=== PATIENT | male | born 1950 | race African-American/Black ===

== ENCOUNTER 2016-11-05 11:47 | Inpatient (IN) | payer BC ==
--- NOTE | ~2016-11-05 | CO ---
Unit #: [id number] #: [id number] Patient: JOHN HESS [id number] [address] [address] [id number] I MR#: [id number] NAME: JOHN HESS ROOM: 301 Age: 66 Sex: M Admission Date: 11/05/2016 : 1950 Attending Physician: Myron Jones M.D. CONSULTATION REPORT REASON FOR CONSULTATION Multiple PEG placement. HISTORY OF PRESENTING ILLNESS The patient is a 66-year-old -[place] male who has a history of lung cancer with mets to the brain. At this time, he is completely unresponsive. Nurse says last night he took a "turn for the worst." His family was at bedside. Initially his sister and POA had agreed to the PEG. However, at this time they may be changing their minds. Patient opens his eyes spontaneously; however, does not follow commands, is not easily otherwise arousable. PAST MEDICAL HISTORY 1. Lung cancer with mets to the brain. 2. History of smoking. 3. Chronic anemia. 4. Malnutrition. 5. History of DVT. FAMILY HISTORY Per chart, is noncontributory. SURGICAL HISTORY 1. Vena cava filter insertion. 2. Previous bronch. SOCIAL HISTORY The patient is a reformed smoker. Denies drug use or alcohol. HOME MEDICATIONS 1. Colace. 2. Iron. 3. Multivitamin. REVIEW OF SYSTEMS Unobtainable secondary to patient's mental status. PHYSICAL EXAMINATION GENERAL: The patient is an extremely cachectic, unresponsive 66-year-old male who appears to be in very ill health. VITAL SIGNS: Temperature 97.7, pulse is 108, respirations 20, blood pressure is 70/36. Last night it did get as low as 59/33 where MET team was called. CARDIAC: S1, S2. Unit #: [id number] #: [id number] Patient: JOHN HESS LUNGS: Scattered wheezes. ABDOMEN: Very thin. Positive bowel sounds. DIAGNOSTIC STUDIES LABORATORY DATA: Chemistry is currently pending. White count 9.6, hemoglobin 10.6, hematocrit 34.8, platelets are 164. ASSESSMENT AND PLAN 1. Lung cancer with mets to the brain: The patient is currently undergoing palliative radiation. 2. Altered mental status with subsequent request for PEG tube: At this time, patient does appear to be a very poor candidate. Will need to discuss further with his family. In the meantime, if absolutely necessary, would consider Dobbhoff tube placement. Thank you for this interesting consult. We will continue to follow along. Dictated by... Leyla Madden A.P.R.N. for Fawn Hernandez/suzan TD: 11/19/2016 13:07 JOB #: [id number] CONSULTATION REPORT X X CONSULTATION REPORT
--- NOTE | ~2016-11-05 | CR72 ---
[facility] A Service of [facility] & [facility] RADIOLOGY TEXT RESULTS PATIENT: JOHN HESS LOCATION: [facility] 301- : [birth year] UNIT #: [id number] AGE: [address]: Myron Jones MD SEX: M ORDER DR: [id number] [facility] [address] [facility]. [place], [place] [address] [id number] MR#: [id number] Acc #: [id number] NAME: JOHN HESS : 1950 SEX: M STUDY DATE/TIME: 11/18/2016 21:00 UNIT: A PCU ROOM: [facility] STUDY DESCRIPTION: CR Chest Single View Portable Attending Physician: Myron Jones M.D. Ordering Physician: Myron Jones M.D. MEDICAL IMAGING REPORT This report is preliminary unless electronic signature is present EXAM Portable chest, 11/18/2016 HISTORY Shortness of breath, low oxygen saturation today. FINDINGS The cardiac and mediastinal structures are stable compared with 10/25/2016. There is a right pleural effusion with infiltrate or atelectasis in the right lower lobe. Lungs are otherwise clear. No pneumothorax. IMPRESSION Small right pleural effusion with infiltrate or atelectasis in the right lower lobe. Dictated by... Anthony Osman M.D. THIS IS AN ELECTRONICALLY VERIFIED REPORT Anthony Osman M.D. at 11/19/2016 10:50 AM Avril TD: 11/19/2016 04:31 JOB #: [id number] MEDICAL IMAGING REPORT COPY
--- NOTE | ~2016-11-05 | HP ---
Unit #: [id number] #: [id number] Patient: JOHN HESS [id number] [address] [address] [id number] I MR#: [id number] NAME: JOHN HESS ROOM: 301 Age: 66 Sex: M Admission Date: 11/05/2016 : 1950 Attending Physician: Myron Jones M.D. HISTORY AND PHYSICAL DATE OF EVALUATION 11/06/2016 REASON FOR ADMISSION Lung cancer with brain metastasis needing radiation therapy. HISTORY OF PRESENT ILLNESS This is a very unfortunate, 66-year-old, -[place]inean gentleman with past medical history significant for tobacco abuse, who presented to the emergency room at [facility] a few days ago with altered mental status. At that time, his CT head showed multiple brain metastasis with vasogenic edema compatible with possible neoplastic disease. The patient underwent bronchoscopy with endobronchial ultrasound biopsy which showed nonsmall-cell lung cancer. The patient was transferred here for palliative radiation. Currently, the patient is awake, alert, slightly confused. He is inconsistent with his history and he (1) easily when he is talking. He denied any chest pain, nausea, vomiting or diarrhea. No headache. PAST MEDICAL HISTORY 1. Nonsmall lung cancer. 2. Smoking. 3. Chronic anemia. 4. Malnutrition. 5. DVT. FAMILY HISTORY Noncontributory. PAST SURGICAL HISTORY 1. Bronch/EBUS. 2. Venocaval filter insertion. SOCIAL HISTORY The patient smokes one pack per day for more than 25 years. No history of drug abuse and he drinks occasionally. HOME MEDICATION 1. Colace. 2. Ferrous sulfate. 3. Multivitamin. REVIEW OF SYSTEMS A 12-point review of systems was obtained and was negative except for what Unit #: [id number] #: [id number] Patient: JOHN HESS was mentioned in the HPI. PHYSICAL EXAMINATION GENERAL APPEARANCE: The patient is very cachetic, in no acute distress. VITAL SIGNS: Blood pressure 113/65. Respiratory rate 16. O2 saturation 98%. HEENT: Normocephalic, atraumatic. PERRLA. EOMI. NECK: Supple. No JVD. No lymphadenopathy. CHEST: Decreased breath sounds bilaterally. HEART: S1, S2. No murmurs, gallops or rubs. ABDOMEN: Soft, nontender. Bowel sounds positive. No hepatosplenomegaly. EXTREMITIES: No edema or cyanosis. SKIN: No rashes. CENTRAL NERVOUS SYSTEM: The patient is awake, alert, oriented x2. DIAGNOSTIC STUDIES Labs and x-ray are unavailable from our facility. The patient came as a transfer from [facility]. ASSESSMENT 1. Stage 4 nonsmall lung cancer. 2. Brain metastasis. 3. Malignant effusion. 4. History of DVT. 5. Malnutrition. 6. Chronic anemia. PLAN 1. I discussed with patient CODE status and we will make him DNI/DNR. 2. Palliative radiation. 3. Haldol and iron sulfate. 4. Consult Oncology for final plan. Dictated by Fawn Sofia TD: 11/07/2016 11:17 JOB #: [id number] HISTORY AND PHYSICAL X LUCÍA PADILLA MD X HISTORY AND PHYSICAL
--- NOTE | ~2016-11-05 | FU ---
[facility] Nutrition Therapy DATE: 11/13/16 Patient: JOHN HESS Physician: ALLEY Address: [address] [place] [address] Room/Bed: [address] [place] [address], Zip: [place] [address] Admit Date: 11/05/16 Date of : [birth year] Height: 6 0 Weight: 108 49.4 NUTRITION MONITORING/FOLLOW-UP: Reason: Follow up Anthropometrics: Ht: 6'0" Adm wt: 54.8 kg BMI: 16.4 IBW: 80.9 kg, 68% IBW Labs: (Last obtained 11/12) BUN 40 Ca++ 8.0 Meds: Ferrous gluconate, zofran, therapeutic formula, colace, remeron I&O's: 580/5, last BM 11/12 Skin: Scabs/ scars- BLE/ scattered Estimated Nutrition Needs: 9573-3781 kcals (35-40 kcals/kg) 82-110 grams protein (1.5-2.0 grams/kg) Diet: High calorie/ high protein +Ensure TID +Ensure clear TID Assessment: Chart reviewed, events noted. Pt continues with poor PO intake per RN report. RN states that the pt is very lethargic, and consumed only a couple bites of his breakfast. RD spoke with care management team regarding the pt's poor nutritional status. Care management and MD (Judy) spoke with family, explaining that if they want the pt to go to rehab eventually, he will need a PEG if PO intake does not improve. Family to discuss this and make a decision. Per MD note, the family does not want Hospice services at this time. Per transitions managercommercial intelligence manager, the pt's family brought him a chili cheese hot dog, which he only ate two bites of. Of note,the pt's weight is trending down since admission as noted above. Please see recommendations below. Dx: Severe PCM RT cancer, decreased appetite, nausea AEB 16% weight loss in short time frame, 25# weight loss, poor intake, BMI 16.4, 68% IBW. Intervention: 1. HPHC diet 2. Ensure TID 3. Ensure clear TID 4. PEG Monitoring, Evaluation and Goals: GOALS NOT BEING MET [facility] Nutrition Therapy DATE: 11/13/16 Patient: JOHN HESS Physician: ALLEY Address: [address] [place] [address] Room/Bed: [address] [place] [address], Zip: [place] [address] Admit Date: 11/05/16 Date of : [birth year] Height: 6 0 Weight: 108 49.4 1. Oral intake; tolerate >50-75% of meals 2. Labs; WNL 3. Weight; promote weight gain, prevent further weight loss 4. Skin; prevent breakdown Recommendations: 1. Recommend obtaining enteral access if deemed appropriate per pt/ family/ MD discretion. 2. RD now recommending continuous enteral nutrition to meet 100% of the pt's estimated nutrient needs, as he is consuming very minimal amounts of nutrition PO. -If enteral access is obtained, would start continuous enteral nutrition with Jevity 1.5 @ 15 mL/hr. Increase by 10 mL q 12 hrs as tolerated to goal of 60 mL/hr to provide: 2160 kcals/ 92 grams protein/ 1094 mL free H20 PLEASE NOTE: THIS PT IS AT RISK FOR REFEEDING SYNDROME DUE TO SEVERE MALNUTRITION. IF ENTERAL NUTRITION IS STARTED, PLEASE START FEEDING AT LOW RATE AND INCREASE GRADUALLY USING RD RECOMMENDATIONS ABOVE. MONITOR ELECTROLYTES, GLUCOSE, AND FLUID STATUS CLOSELY 3. Continue PO diet for oral gratification. If the pt's PO intake improves, enteral nutrition will be adjusted. RD will continue to follow. Status: Pt is at moderate-severe nutritional risk. Respectfully, MOLLY MCDANIEL RD, LD Food and Nutritional Services [facility] cc: client file
--- NOTE | ~2016-11-05 | CO ---
Unit #: [id number] #: [id number] Patient: JOHN HESS [id number] [facility] [address] [facility]. [place], [place] [address] [id number] MR#: [id number] NAME: JOHN HESS ROOM: 301 Age: 66 Sex: M Admission Date: 11/05/2016 : 1950 Attending Physician: Myron Jones M.D. CONSULTATION REPORT DATE OF EVAL 11/06/16 REASON FOR EVAL Stage 4 lung cancer. Please evaluate. HISTORY OF PRESENT ILLNESS The patient is a 66-year-old -[place]mani gentleman [facility], was evaluated, found to have multiple brain mets. He underwent bronchoscopy and biopsy which proved that he had metastatic nonsmall-lung cancer. He has been transferred to [facility] for continuation of radiation therapy followed by evaluation for further chemotherapy if feasible. His past history is mainly remarkable for the recent admission for the brain metastasis but he does have a history of vena cava filter insertion and possible clots in the past but he is not very clear about this history. His mentation is not clear enough for him to remember all the things that happened in the past. There is no family member with him. Today, on questioning, he states that he is feeling better. His appetite is coming back but his memory is not that great. SOCIAL HISTORY The patient is very vague about his social history. He is alone and states that there is no family member to help him. I have not been able to reach any of his family members yet and we will continue to try. He has a smoking history. Currently, he has not smoked but he has a 25 to 30 pack smoking, very rare alcohol usage and no drug usage. FAMILY HISTORY Negative for cluster of cancers. ALLERGIES No known allergies. CHRONIC MEDICATIONS 1. Dexamethasone currently which is changed to p.o., 4 mg p.o. q.6. 2. Colace. 3. Multivitamins. 4. Haldol. 5. Transdermal patch which is Habitrol. 6. Periodic Tylenol. 7. Zofran for nausea. REVIEW OF SYSTEMS Unit #: [id number] #: [id number] Patient: JOHN HESS He is very vague. He states he has not been eating, not feeling well. No specific headache or projectile vomiting. He has lost about 25 lb according to him in the last few weeks or months. No chronic active pain currently. Otherwise, six or eight systems were within normal limits. PHYSICAL EXAMINATION GENERAL APPEARANCE: Very asthenic gentleman, appears awake, alert, voices no complaints. LYMPH NODES: No supraclavicular, axillary or groin nodes. LUNGS: Crackles. No rales. No wheeze. CARDIOVASCULAR: Distant S1, S2. ABDOMEN: Scaphoid. No organomegaly. No ascites. CENTRAL NERVOUS SYSTEM: Grossly intact. A detailed BUTCHER FISH exam was not performed, as he is not capable of answering questions and his past memory is very poor. He moves upper and lower extremity. There is atrophy of muscles and rectal was not performed. IMPRESSION This 66-year-old gentleman with very poor social status. No family member available and he does not recall we should call to communicate about his condition. He does have stage 4 nonsmall-cell lung CA with brain mets and he had presented with change and decreased mentation which is gradually but slowly improving. So, at this point, I would suggest we continue the dexamethasone 4 mg p.o. q.6 hours. We allowed the radiation to proceed for the brain and I will try to contact family members to see if there is going to be any support for outpatient radiation therapy transportation back and forth, etc. Followed by the radiation to the brain, we will do a complete reevaluation and discuss with (1) who is the primary doctor in his case if he wants to proceed with any further chemotherapy at that point. Dictated by... Fawn Trinidad/willy TD: 11/07/2016 13:08 JOB #: [id number] CONSULTATION REPORT X Lam Kohler MD CONSULTATION REPORT
--- NOTE | ~2016-11-05 | A ---
[facility] Nutrition Therapy DATE: 11/06/16 Patient: JOHN HESS Physician: ALLEY Address: [address] [place] [address] Room/Bed: [address] [place] [address], Zip: [place] [address] Admit Date: 11/05/16 Date of : [birth year] Height: 6 0 Weight: 120 54.8 NUTRITIONAL ASSESSMENT: REASON: Pt seen for low BMI 66 yo male admitted for lethargy, stomach discomfort PMH: Metastatic widespread non-small cell carcinoma of the left upper lobe, anemia, protein-calorie malnutrition, PE Anthropometrics: Ht: 6'0" Adm wt: 54.8 kg BMI: 16.4 IBW: 80.9 kg, 68% IBW Labs: None available Meds: ferrous gluconate, zofran, therapeutic formula, colace I/O & Bowel function: 1450/2325, last BM 11/06 Skin Integrity: no breakdown noted Edema: none noted Estimated Nutrition Needs: Increased due to cancer, low body weight, malnutrition Diet: Regular Assessment: Chart reviewed, events noted. Pt has metastatic lung cancer, presenting with very low body weight, BMI of 16.4 and 68% of his IBW. RD spoke with the pt at bedside. Pt reports decreased appetite and nausea with weight loss of ~25#. Pt reportedly weighed 150# prior to his cancer diagnosis, which seems to have been pretty recently. Pt appears very frail and thin, with evidence of severe protein-calorie malnutrition (see physical malnutrition assessment on next page). Pt's mouth appeared very dry. Pt is agreeable to Ensure TID. RD stressed the importance of adequate protein-calorie intake. POLICY OFFICER at bedside reports that the pt has not consumed any nutrition today. POLICY OFFICER was setting up the pt's lunch tray, and the pt told RD he would eat some of his lunch. RD will follow up to further assess intake. Dx: Severe protein-calorie malnutrition RT cancer, decreased appetite, nausea AEB 16% weight loss in short time frame, 25# weight loss, poor intake, BMI 16.4, 68% IBW. Intervention: 1. High protein/ High Calorie diet 2. Ensure TID 3. Appetite stimulant [facility] Nutrition Therapy DATE: 11/06/16 Patient: JOHN HESS Physician: ALLEY Address: [address] [facility] Room/Bed: [address] [place] [address], Zip: [place] [address] Admit Date: 11/05/16 Date of : [birth year] Height: 6 0 Weight: 120 54.8 Monitoring, Evaluation and Goals: 1. Oral intake; >50-75% of meals 2. Weight; promote weight gain, prevent weight loss 3. Skin; prevent breakdown Recommendations: 1. Add high protein/high calorie to the pt's diet order. 2. Ensure strawberry TID with meals for supplemental nutrition. 3. Pt may benefit from an appetite stimulant such as Megace in order to promote nutrient intake. 4. If appropriate based on the pt's discretion/ goals of care, consider obtaining enteral access and starting enteral nutrition if the pt's nutritional status and intake do not improve. RD will follow. Pt is at moderate-severe nutritional risk. RD will follow hospital course. Respectfully, MOLLY MCDANIEL RD, LD Food and Nutritional Services [facility] cc: client file
--- NOTE | ~2016-11-05 | CO ---
Unit #: [id number] #: [id number] Patient: TEE LOCK [id number] [place], [place] [address] [id number] MR#: [id number] NAME: TEE LOCK ROOM: 301 Age: 66 Sex: M Admission Date: 11/05/2016 : 1950 Attending Physician: Myron Jones M.D. Consultation Date: 11/06/2016 CONSULTATION REPORT DIAGNOSIS Widespread metastatic non-small cell carcinoma of the left upper lobe with metastases to bone and brain. CHIEF COMPLAINT Lethargy and stomach discomfort. HISTORY OF PRESENT ILLNESS Mr. Tee Lock is a 66-year-old -[place] Islander male with a longstanding history of tobacco abuse. He states he has tried to stop multiple times in the past with no results. He has greater than 40 pack-year history. He also states that he has had unintentional weight loss of at least 30 pounds associated with some nausea and decreased appetite. He has also had swelling of his lower extremities and perhaps mild shortness of breath. He denies any hemoptysis or hematemesis. He denies any fevers or chills but was actually seen in the emergency room at [facility] and a CT of the brain demonstrated what appeared to be multiple lesions with associated vasogenic edema. The patient further had a chest x-ray demonstrating pleural effusion on the right side with a left sided mass. The patient had further imaging including an MRI of the brain performed at [facility] dated 10/25/16. This was compared with the previous CT scan. The patient was found to have at least nine masses in the brain, predominantly in the parietal lobes. The largest lesion was in the posterior medial right parieto-occipital lobe measuring some 3.2 x 3.2 cm with associated edema. There was also a lesion in the superior cerebellar vermis measuring 1.7 x 1.9 cm causing some mass effect. The patient had no hydrocephalus fortunately. CT angiogram of the chest was performed 10/24/[address] [facility]. This demonstrated a spiculated nodule 3 x 1.5 cm left upper lobe which appeared to be consistent with bronchogenic carcinoma. There was associated 1 x 0.7 cm nodule right upper lobe which likely represents metastatic disease. There was also a lytic lesion at T3 confirmed on MRI of the thoracic spine. The patient was also noted to have enlargement of mean pulmonary artery with pulmonary hypertension. There was no pulmonary embolus appreciated. The patient was not felt to be a candidate for any type of definitive procedure and he has been made a DNR. I have been asked to see this gentleman regarding palliative therapy. RECOMMENDATIONS I have discussed this situation extensively with Dr. Kirk Zavala. I have had an opportunity to meet and discuss care with Mr. Lock as well. He remains aware of his current situation. He was actually working up to two weeks ago and this has been a rather rapid decline in functioning status. I am offering him palliative radiotherapy to the brain with plans Unit #: [id number] #: [id number] Patient: TEE LOCK to administer 30 Gy/10 fractions while boosting the areas of gross disease to approximately 39 Gy. The various side effects and complications associated with therapy including lethargy, depression of blood counts, hair loss, have been discussed with patient. He understands and accepts these things. We will proceed with initial CT stimulation at 1 p.m. today with treatment again no later than 24 hours from this time. PAST MEDICAL HISTORY Remarkable for: 1. Anemia. 2. Altered mental state. 3. Acute metabolic encephalopathy. 4. Protein calorie malnutrition. 5. History of pleural effusion, status post right thoracentesis. 6. The patient has had a vena caval filter inserted 10/25/16. MEDICATIONS 1. Colace. 2. Decadron 4 mg q.i.d. 3. Iron supplements 324 mg b.i.d. 4. Habitrol transdermal patch. 5. Haldol p.r.n. 6. Multivitamins. 7. Normal saline flushes. 8. Zofran for nausea. 9. Tylenol. ALLERGIES The patient has no known medication allergies. FAMILY HISTORY Noncontributory. REVIEW OF SYSTEMS The patient denies fever, chills or sweats. He has had no seizure activity. He has no sinus or respiratory difficulty. Denies chest pain. Has some mild GI discomfort. No vomiting. Denies hematuria or difficulty. PHYSICAL EXAMINATION VITAL SIGNS: Temperature 98, pulse 73, respirations 16, BP 92/60, height 6 foot, weight 120. HEENT: Pupils equal, round, reactive to light and accommodation. Extraocular movements within normal limits. NECK: Without evidence of adenopathy. Supraclavicular fossa unremarkable as well. LUNGS: Auscultated breath sounds are distant but clear. CARDIOVASCULAR EXAM: Slow, regular rhythm. No obvious gallop or murmur. AXILLAE: Unremarkable. CHEST: Clear. ABDOMEN: Soft, nontender. No evidence of mass. Bowel sounds positive. EXTREMITIES: Demonstrate skeletal muscular wasting. No clear neurological deficits appreciated. Cranial nerves intact. Upper extremities move in an equal and symmetric fashion. Core Dropper strength is good. Deep tendon reflexes are intact. Lower extremities also demonstrate no obvious neurological deficits. Muscle strength is decreased as skeletal muscle mass is low. GENITAL/RECTAL EXAMINATION: Not performed. Unit #: [id number] #: [id number] Patient: TEE LOCK NEUROLOGICAL: No sensory deficit is appreciated on examination. DIAGNOSTIC STUDIES LABORATORY DATA: Sodium 140, potassium 4.4, chloride 106. Liver enzymes within normal limits. WBC 10.6, hemoglobin 7.8, platelet count 167,000. Approximately 50 minutes spent discussing case with patient. Dictated by... Fawn Ahn/suzan TD: 11/06/2016 10:56 JOB #: [id number] CC: Fawn Merlos M.D. CONSULTATION REPORT X Taran Benjamin MD X CONSULTATION REPORT
--- NOTE | ~2016-11-05 | FU ---
[facility] Nutrition Therapy DATE: 11/09/16 Patient: JOHN HESS Physician: ALLEY Address: [address] [place] [address] Room/Bed: [address] [place] [address], Zip: [place] [address] Admit Date: 11/05/16 Date of : 48 Height: 6 0 Weight: 114 52 NUTRITION MONITORING/FOLLOW-UP: Reason: NUTRITION FOLLOW UP Anthropometrics: HT: 6'0" ADM WT: 54.8 KG BMI: 16.4 IBW: 80.9 KG, 68% IBW Labs: reviewed, no new. Meds: Ferrous gluconate, zofran, therapeutic formula, colace I&O's: 300/7, last BM 11/08 Skin: no breakdown noted Edema: none noted Estimated Nutrition Needs: 9008-8887 kcals (35-40 kcals/kg) 82-110 grams protein (1.5-2.0 grams/kg) Diet: High Calorie/ high protein + Ensure TID Assessment: Chart reviewed, events noted. Per note on chart and RN report, the pt has not been eating anything. Pt will only consume Ensure shakes (inconsistently), and doesn't always consume those per note on chart. RD discussed recommendations with the pt's RN. RN reports the pt does not like the food here. Severe protein calorie malnutrition identified during initial assessment. Weights are trending down (~6#) since admission. Please see recommendations below. Nutrition diagnosis remains unchanged. Dx: Severe protein-calorie malnutrition RT cancer, decreased appetite, nausea AEB 16% weight loss in short time frame, 25# weight loss, poor intake, BMI 16.4, 68% IBW. Intervention: 1. High protein/ high calorie diet 2. Ensure QID 3. Appetite stimulant 4. Enteral nutrition Monitoring, Evaluation and Goals: GOALS ARE NOT BEING MET. 1. Oral intake; tolerate >50-75% meals + supplements 2. Labs; WNL 3. Weight; promote weight gain, prevent weight loss [facility] Nutrition Therapy DATE: 11/09/16 Patient: JOHN HESS Physician: ALLEY Address: [address] [place] [address] Room/Bed: [address] [place] [address], Zip: [place] [address] Admit Date: 11/05/16 Date of : 48 Height: 6 0 Weight: 114 52 4. Enteral nutrition; provide supplemental nutrition Recommendations: 1. Increase Ensure supplements to QID. Pt prefers strawberry. 2. Pt may benefit from an appetite stimlant such as megace in order to promote increased nutritional intake. Appreciate staff and family encouraging PO intake. 3. If deemed appropriate based on MD/ pt's discretion, pt would benefit from enteral access placement to meet ~75% of his needs with nocturnal enteral nutrition. This will also allow the pt to consume nutrition PO throughout day. 4. If enteral access is obtained, would start Jevity 1.5 @ 20 mL/hr x 12 hrs (from 8P-8A). Increase by 10 mL q 12 hrs (10 mL per night) as tolerated to goal of 80 mL/hr x 12 hrs (8P-8A) to provide: 1440 kcals/ 61 grams protein/ 730 mL free H20 PLEASE NOTE: THIS PT IS AT RISK FOR REFEEDING SYNDROME DUE TO SEVERE MALNUTRITION. IF ENTERAL NUTRITION IS STARTED, PLEASE START AT LOW RATE AND INCREASE GRADUALLY USING RD RECOMMENDATIONS ABOVE. MONITOR ELECTROLYTES AND GLUCOSE LEVELS CLOSELY Status: Pt is at moderate-severe nutritional risk. RD will continue to follow. Respectfully, MOLLY MCDANIEL RD, LD Food and Nutritional Services [facility] cc: client file
--- NOTE | ~2016-11-05 | EKG ---
PATIENT: JOHN HESS UNIT #: [id number] Ventricular Rate: 99 BPM Atrial Rate: 99 BPM P-R Interval: 92 ms QRS Duration: 86 ms Q-T Interval: 370 ms QTC Calculation(Bezet): 474 ms P [place]: 80 degrees Calculated R [place]: 67 degrees Calculated T [place]: 64 degrees Diagnosis Line: Sinus rhythm with short [place] Diagnosis Line: Possible Left atrial enlargement Diagnosis Line: Borderline ECG Diagnosis Line: No previous ECGs available Diagnosis Line: Confirmed by DRU JONES MD ([id number]) on Diagnosis Line: 11/20/2016 8:17:12 AM INTERPRETING MD: KAREN MUÑOZ
--- NOTE | ~2016-11-05 | FU ---
[facility] Nutrition Therapy DATE: 11/19/16 Patient: JOHN HESS Physician: ALLEY Address: [address] [place] [address] Room/Bed: [address] [place] [address], Zip: [place] [address] Admit Date: 11/05/16 Date of : 48 Height: 6 0 Weight: 92 42 NUTRITION MONITORING/FOLLOW-UP: Reason: Nutrition follow up Anthropometrics: Wt 11/19: 42 kg (bedscale wt, pt too weak to stand) Labs: Na+ 154 K+ 6.4 Cl- 118 BUN 144 Creat 5.4 Ca++ 7.3 Accuchecks 131 GFR 13.7 Meds: ferrous gluconate, zofran, therapeutic formula, colace, remeron, megace oral, NaCl I&O's: 800/2, last BM 11/17 Skin: reviewed, no changes noted. Edema: none noted Estimated Nutrition Needs: 7247-5388 kcals (35-40 kcals/kg) 82-110 grams protein (1.5-2.0 grams/kg) Diet: NPO Assessment: Chart reviewed, events noted. Per GI note in chart, the pt is a poor candidate for PEG placement. Family wanted to continue supportive care earlier today, however, family is now requesting new hospice consult, as the pt is unresponsive and lethargic. Transfer to ICU cancelled, and hospice has been consulted. Pt has been made NPO, as he cannnot safely take anything PO at this time per HEAD MACHINIST evaluation. Potassium, sodium, BUN, creatinine are elevated as noted above. Please see recommendations below. Nutrition diagnosis remains unchanged. Dx: Severe protein- calorie malnutrition RT cancer, decreased appetite, nausea AEB 16% weight loss, 25# weight loss, poor intake, BMI 16.4, 68% IBW- ACTIVE Intervention: 1. NPO 2. HEAD MACHINIST 3. Enteral nutrition if appropriate Monitoring, Evaluation and Goals: GOALS NOT BEING MET 1. Nutrition; provide adequate nutrition (>80% of needs) as medically feasible 2. Labs; WNL 3. Weight; prevent weight loss, promote weight gain [facility] Nutrition Therapy DATE: 11/19/16 Patient: JOHN HESS Physician: ALLEY Address: [address] [place] [address] Room/Bed: [address] [place] [address], Zip: [place] [address] Admit Date: 11/05/16 Date of : 48 Height: 6 0 Weight: 92 42 4. Skin; prevent breakdown Recommendations: 1. Continue HEAD MACHINIST as appropriate to determine if the pt can safely tolerate PO intake. 2. If aggresive treatment continues, the pt will need enteral access to provide adequate nutrition. Per GI note in chart, the pt is a poor candidate for PEG placement. Please consult RD if PEG is to be placed. RD previously provided enteral nutrition recommendations. RD will continue to follow. Status: Severe nutritional risk. RD will continue to follow the pt closely. Respectfully, MOLLY MCDANIEL RD, LD Food and Nutritional Services [facility] cc: client file
--- NOTE | ~2016-11-05 | MAL ---
[facility] Nutrition Therapy DATE: 11/06/16 Patient: JOHN HESS Physician: ALLEY Address: [address] [place] [address] Room/Bed: [address] [place] [address], Zip: [place] [address] Admit Date: 11/05/16 Date of : 48 Height: 6 0 Weight: 120 54.8 PHYSICAL MALNUTRITION ASSESSMENT Energy Intake, Chronic Illness Severely reduced: </=50% needs for >/=1 month Energy Intake Comment: Decreased intake and appetite reported by the patient. Less than 50% meals ASSEMBLER SEAT and 0% today. Weight Loss, Chronic Illness Severe: >5% past 1 month Weight Loss, Comment: Pt reported ~25# weight loss in the past couple months with a UBW of 150#. This indicates ~16% weight loss. Physical Findings Body Fat and Muscle Mass Severe: (obvious) significant muscle wasting and/or loss of subcutaneous fat Physical Findings Comment: Pt has hollow, dark cirlces around orbital region, depression at his temporal region, and protruding, prominent clavicle bone. Dietitian Malnutrition Assessment Score: Severe PCM Malnutrition Survey Results: Malnutrition identified Malnutrition Etiology Summary: Chronic illness severe Malnutrition Survey Comment: See full RD nutrition assessment. Severe PCM identified. Respectfully, MOLLY MCDANIEL, KRISTI, LD Food and Nutritional Services [facility] cc: client file
[2016-11-05] MEDS ORDERED: DOCUSATE SODIU100 MG PO (18:14)
[2016-11-05] MEDS ORDERED: DEXAMETHASONE4 MG/M1 INJ (18:15)
[2016-11-05] MEDS ORDERED: FERROUS GL324 ( 36 ) PO (18:15)
[2016-11-05] MEDS ORDERED: NICOTINE1 PATCH .2 TD (18:16)
[2016-11-05] MEDS ORDERED: [UNRECOGNIZED DRUG - OTHER] IV ×2 (18:17→18:18)
[2016-11-05] MEDS ORDERED: TYL325 PO (18:19)
[2016-11-05] MEDS ORDERED: CENTRUM MULTIG80 MCG PO (18:19)
[2016-11-05] MEDS ORDERED: ZOFRAN IV (18:20)
[2016-11-07 06:01] LABS: HEMATOCRIT 24.2 % (38.0-50.0); MEAN CORPUSCULAR HEMOGLOBIN 33.1 PG (28-34); MEAN CORPUSCULAR HGB CONC 33.1 g/dL (30-36); MEAN PLATELET VOLUME 7.9 FL (6.5-11.5); RED BLOOD COUNT 2.41 X10e (3.90-5.60); RED CELL DISTRIBUTION WIDTH 17.1 % (11.0-15.5); WHITE BLOOD COUNT 13.6 X10e3 (4.0-10.5)
[2016-11-07 06:10] LABS: INR 1.1; PROTHROMBIN TIME (PATIENT) 11.8 SECONDS (9.6-11.5)
[2016-11-07 07:02] LABS: ALBUMIN SERUM 2.6 g/dL (3.5-5.0); ALKALINE PHOSPHATASE 67 U/L (32-92); ALT (SGPT) 16 U/L (10-40); AST (SGOT) 17 U/L (10-42); BILIRUBIN,TOTAL 0.9 mg/dL (0.2-2.0); BLOOD UREA NITROGEN 31 mg/dL (9-23); BUN/CREATININE RATIO 44.28; CARBON DIOXIDE 26 mmol/L (22-31); CHLORIDE 108 mmol/L (100-111); CREATININE SERUM 0.7 mg/dL (0.6-1.4); GLOM FILT RATE Estimated ABOVE60 mL/min (>60); GLUCOSE FASTING 105 mg/dL (70-110); POTASSIUM 4.7 mmol/L (3.5-5.1); PROTEIN TOTAL SERUM 5.5 g/dL (6.0-8.3); SODIUM 141 mmol/L (135-145)
[2016-11-08 07:08] LABS: HEMATOCRIT 25.2 % (38.0-50.0); HEMOGLOBIN 8.5 gm/dL (13.0-16.0); MEAN CELL VOLUME 99.8 FL (83-96); MEAN CORPUSCULAR HEMOGLOBIN 33.7 PG (28-34); MEAN CORPUSCULAR HGB CONC 33.8 g/dL (30-36); MEAN PLATELET VOLUME 7.8 FL (6.5-11.5); RED BLOOD COUNT 2.53 X10e (3.90-5.60); RED CELL DISTRIBUTION WIDTH 17.1 % (11.0-15.5); WHITE BLOOD COUNT 11.3 X10e3 (4.0-10.5)
[2016-11-08 07:45] LABS: TOTAL IRON BINDING CAPACITY 193 ug/dL (252-460); TRANSFERRIN 138 mg/dL (180-329)
[2016-11-08 07:54] LABS: IRON SERUM <5 ug/dL (45-182); TRANSFERRIN SATURATION 3 % (20-50)
[2016-11-08 08:02] LABS: FOLATE (FOLIC ACID) 7.9 ng/mL (>5.8)
[2016-11-12 05:20] LABS: BASOPHIL% 0.1 % (0-2.5); HEMATOCRIT 25.3 % (38.0-50.0); HEMOGLOBIN 8.3 gm/dL (13.0-16.0); LYMPHOCYTE# 0.4 X10e3 (1.0-3.5); LYMPHOCYTE% 3.5 % (17.0-45.0); MEAN CELL VOLUME 100.1 FL (83-96); MEAN CORPUSCULAR HGB CONC 32.9 g/dL (30-36); MEAN PLATELET VOLUME 7.9 FL (6.5-11.5); MONOCYTE# 0.6 X10e3 (0-1.0); MONOCYTE% 5.1 % (3.0-12.0); NEUTROPHIL% 91.3 % (40-75); PLATELET COUNT 217 X10e3 (140-420); RED BLOOD COUNT 2.53 X10e (3.90-5.60); RED CELL DISTRIBUTION WIDTH 16.1 % (11.0-15.5)
[2016-11-12 05:42] LABS: DIFF IND NO
[2016-11-12 05:47] LABS: ALBUMIN SERUM 2.5 g/dL (3.5-5.0); ALKALINE PHOSPHATASE 64 U/L (32-92); ALT (SGPT) 14 U/L (10-40); AST (SGOT) 18 U/L (10-42); BILIRUBIN,TOTAL 0.7 mg/dL (0.2-2.0); BLOOD UREA NITROGEN 40 mg/dL (9-23); CARBON DIOXIDE 26 mmol/L (22-31); CHLORIDE 108 mmol/L (100-111); CREATININE SERUM 0.8 mg/dL (0.6-1.4); GLOM FILT RATE Estimated ABOVE60 mL/min (>60); GLUCOSE FASTING 94 mg/dL (70-110); POTASSIUM 4.6 mmol/L (3.5-5.1); PROTEIN TOTAL SERUM 5.6 g/dL (6.0-8.3); SODIUM 141 mmol/L (135-145)
[2016-11-16 04:36] LABS: HEMATOCRIT 30.3 % (38.0-50.0); HEMOGLOBIN 9.6 gm/dL (13.0-16.0); MEAN CELL VOLUME 99.9 FL (83-96); MEAN CORPUSCULAR HEMOGLOBIN 31.7 PG (28-34); MEAN CORPUSCULAR HGB CONC 31.7 g/dL (30-36); MEAN PLATELET VOLUME 8.2 FL (6.5-11.5); RED BLOOD COUNT 3.03 X10e (3.90-5.60); RED CELL DISTRIBUTION WIDTH 16.1 % (11.0-15.5); WHITE BLOOD COUNT 11.3 X10e3 (4.0-10.5)
[2016-11-16 04:47] LABS: ALBUMIN SERUM 2.6 g/dL (3.5-5.0); ALKALINE PHOSPHATASE 70 U/L (32-92); ALT (SGPT) 14 U/L (10-40); AST (SGOT) 17 U/L (10-42); BILIRUBIN,TOTAL 0.7 mg/dL (0.2-2.0); BLOOD UREA NITROGEN 50 mg/dL (9-23); CALCIUM SERUM 7.6 mg/dL (8.4-10.2); CARBON DIOXIDE 23 mmol/L (22-31); CHLORIDE 114 mmol/L (100-111); GLOM FILT RATE Estimated ABOVE60 mL/min (>60); GLUCOSE FASTING 80 mg/dL (70-110); POTASSIUM 4.6 mmol/L (3.5-5.1); PROTEIN TOTAL SERUM 6.1 g/dL (6.0-8.3); SODIUM 140 mmol/L (135-145)
[2016-11-17 09:21] LABS: HEMATOCRIT 31.4 % (38.0-50.0); MEAN CORPUSCULAR HGB CONC 31.7 g/dL (30-36); MEAN PLATELET VOLUME 8.1 FL (6.5-11.5); RED BLOOD COUNT 3.11 X10e (3.90-5.60); RED CELL DISTRIBUTION WIDTH 16.1 % (11.0-15.5)
[2016-11-17 09:57] LABS: ALBUMIN SERUM 2.7 g/dL (3.5-5.0); ALKALINE PHOSPHATASE 75 U/L (32-92); ALT (SGPT) 14 U/L (10-40); AST (SGOT) 13 U/L (10-42); BILIRUBIN,TOTAL 0.8 mg/dL (0.2-2.0); BLOOD UREA NITROGEN 71 mg/dL (9-23); BUN/CREATININE RATIO 54.61; CARBON DIOXIDE 22 mmol/L (22-31); CHLORIDE 116 mmol/L (100-111); CREATININE SERUM 1.3 mg/dL (0.6-1.4); GLOM FILT RATE Estimated ABOVE60 mL/min (>60); GLUCOSE FASTING 86 mg/dL (70-110); POTASSIUM 4.8 mmol/L (3.5-5.1); PROTEIN TOTAL SERUM 6.2 g/dL (6.0-8.3); SODIUM 148 mmol/L (135-145)
[2016-11-19 09:29] LABS: HEMATOCRIT 34.8 % (38.0-50.0); HEMOGLOBIN 10.6 gm/dL (13.0-16.0); MEAN CELL VOLUME 106.1 FL (83-96); MEAN CORPUSCULAR HEMOGLOBIN 32.4 PG (28-34); MEAN CORPUSCULAR HGB CONC 30.6 g/dL (30-36); MEAN PLATELET VOLUME 9.3 FL (6.5-11.5); RED BLOOD COUNT 3.28 X10e (3.90-5.60); RED CELL DISTRIBUTION WIDTH 17.8 % (11.0-15.5); WHITE BLOOD COUNT 9.6 X10e3 (4.0-10.5)
[2016-11-19 13:57] LABS: CALCIUM SERUM 7.3 mg/dL (8.4-10.2); CREATININE SERUM 5.4 mg/dL (0.6-1.4); GLOM FILT RATE Estimated 13.7 mL/min (>60)
[2016-11-19 14:00] LABS: BUN/CREATININE RATIO 26.66; POTASSIUM 6.4 mmol/L (3.5-5.1)
[2016-11-19 19:09] LABS: ALBUMIN SERUM 2.2 g/dL (3.5-5.0); BILIRUBIN,TOTAL 0.6 mg/dL (0.2-2.0); CALCIUM SERUM 6.6 mg/dL (8.4-10.2); CREATININE SERUM 5.1 mg/dL (0.6-1.4); GLOM FILT RATE Estimated 14.6 mL/min (>60); PROTEIN TOTAL SERUM 5.1 g/dL (6.0-8.3)
[2016-11-19 19:31] LABS: BUN/CREATININE RATIO 27.45
[2016-11-19 19:34] LABS: POTASSIUM 5.6 mmol/L (3.5-5.1)
== END 2016-11-21 09:41 | disposition expired | DRG 180 ==
LOC: C3A PCU 11:47
PROVIDERS: Internal Medicine; Internal Medicine Medical Oncology; Internal Medicine Pulmonary Disease
PROC: DWY5GYZ Isotope Administration to Whole Body using Other Isotope (ICD-10-PCS; principal; 2016-11-16)
DX: C34.12 Malignant neoplasm of upper lobe, left bronchus or lung (principal); E43 Unspecified severe protein-calorie malnutrition; J69.0 Pneumonitis due to inhalation of food and vomit; G92 Toxic encephalopathy; J91.0 Malignant pleural effusion; C79.31 Secondary malignant neoplasm of brain; Z68.1 Body mass index [BMI] 19.9 or less, adult; C34.11 Malignant neoplasm of upper lobe, right bronchus or lung; Z87.891 Personal history of nicotine dependence; Z86.718 Personal history of other venous thrombosis and embolism; Z66 Do not resuscitate; Z51.5 Encounter for palliative care
CPT/HCPCS: 71010; 80048; 80053; 82607; 82728; 82746; 82947; 83540; 83550; 85025; 85027; 85610; 92610; 93005; 94640; 94760; 97110; 97116; 97162; 97167; 97530; G8987-GO; G8988-GO; G8996-GN; G8997-GN; J1100; J1630; J1650; J2270; J2543